=== PATIENT | female | born 1975 | race Two or more races ===

== ENCOUNTER 2020-03-21 13:54 | Outpatient (REF) | payer OTHER, SELFPAY ==
[2020-03-22 10:29] LABS: BV Int Neg Control Negative (Negative); BV Int Pos Control Positive (Positive)
[2020-03-23 19:17] LABS: HPV mRNA E6/E7 rflx Not Detected (Not Detected)
== END 2020-03-21 13:55 | disposition home or self-care (01) ==
LOC: HO.LAB 13:54
PROVIDERS: PCP Internal Medicine; Visit Provider Advanced Practice Midwife
DX: Z12.4 Encounter for screening for malignant neoplasm of cervix (principal); L73.9 Follicular disorder, unspecified; Z20.2 Contact with and (suspected) exposure to infections with a predominantly sexual mode of transmission
CPT/HCPCS: 36415; 87480; 87491; 87510; 87591; 87624; 87660; 88141; 88142

== ENCOUNTER → 2020-08-08 15:48 | Outpatient (BNVA) | payer OTHER, SELFPAY | PROVIDERS: Visit Provider Obstetrics & Gynecology ==

== ENCOUNTER 2020-08-28 11:06 | Outpatient (REF) | payer OTHER, SELFPAY ==
--- NOTE | ~2020-08-28 | MM_ITS ---
EXAMINATION: MM DIAGNOSTIC DIGITAL BREAST TOMOSYNTHESIS, RIGHT US DIAGNOSTIC ULTRASOUND BREAST, RIGHT CLINICAL INFORMATION: 45-year-old with new palpable fullness upper outer right breast noted by patient. Prior history cyst aspirations at outside hospital. Prior outside mammography currently unavailable. No known family history breast cancer. The lifetime risk of breast cancer based on the Tyrer-Cuzick Model is 7%. COMPARISON: None. Radiology department staff will attempt to retrieve outside mammography to allow for comparison in an addendum report. TECHNIQUE: Digital breast tomosynthesis is performed in both the craniocaudal and mediolateral oblique views along with computer-aided detection (CAD). Synthesized 2D images are generated from the tomosynthesis. Ultrasound right breast is targeted to the area of clinical concern outer quadrants. Grayscale imaging and color Doppler are performed without and with harmonics. FINDINGS: The breasts are heterogeneously dense, which may obscure small masses (ACR BI-RADS breast composition Category c). There is fibronodular parenchymal pattern. There are 2 smooth nodules with partly obscured margins anterior upper outer quadrant near the area of palpable concern, both measuring under 1 cm. There is no architectural abnormality or abnormal calcifications. The axilla and skin contours are unremarkable. Ultrasound demonstrates numerous small simple cysts of variable size, the largest 9:00 position near area of palpable concern, bilobed shape, measuring 1.2 x 0.8 cm. The next largest cyst 10:00 position near area of palpable concern measures 1.0 cm. The cysts are anechoic, circumscribed, and with increased through-transmission of sound. No solid component or color flow. There is no solid mass or architectural abnormality. Results are discussed with the patient at time of visit. MM/MM tomosynthesis diagnostic RT IMPRESSION: 1. No mammographic evidence of malignancy. 2. Multiple small simple cysts outer right breast in area of palpable concern, largest 1.2 x 0.8 cm. ASSESSMENT: BI-RADS 2: Benign RECOMMENDATION: 1. Routine annual mammography screening. 2. Radiology department staff will attempt to retrieve outside mammography to allow for comparison in an addendum report. This patient's information was entered into a reminder system with a target due date for their next mammogram.
== END 2020-08-28 11:07 | disposition home or self-care (01) ==
LOC: HO.MAMMO 11:06
PROVIDERS: Visit Provider Obstetrics & Gynecology
DX: N63.11 Unspecified lump in the right breast, upper outer quadrant (principal)
CPT/HCPCS: 76642; 77061; 77065

== ENCOUNTER → 2020-09-04 14:19 | Outpatient (BNVA) | payer OTHER, SELFPAY | PROVIDERS: PCP Internal Medicine; Referring Provider Obstetrics & Gynecology; Visit Provider Surgery ==

== ENCOUNTER 2020-09-20 14:27 | Outpatient (REF) | payer OTHER, SELFPAY ==
[2020-09-21 04:49] LABS: CT PCR NOT DETECTED (Not Detect.); NG PCR NOT DETECTED (Not Detect.)
== END 2020-09-20 14:28 | disposition home or self-care (01) ==
LOC: HO.LAB 14:27
PROVIDERS: PCP Internal Medicine; Visit Provider Obstetrics & Gynecology
DX: Z30.432 Encounter for removal of intrauterine contraceptive device (principal); Z30.09 Encounter for other general counseling and advice on contraception; N91.2 Amenorrhea, unspecified
CPT/HCPCS: 58301; 87491; 87591

== ENCOUNTER 2020-09-27 17:26 | Outpatient (REF) | payer OTHER, SELFPAY ==
[2020-09-27 18:47] LABS: HCG Quantitative < 2 mIU/mL; TSH reflex Free T4 1.29 uIU/mL (0.32-4.0)
[2020-09-29 09:11] LABS: Follicle Stimulating Hormone 9.2 mIU/mL; Lutenizing Hormone 4.8 mIU/mL
== END 2020-09-27 17:27 | disposition home or self-care (01) ==
LOC: HO.LAB 17:26
PROVIDERS: Visit Provider Obstetrics & Gynecology
DX: N91.2 Amenorrhea, unspecified (principal)
CPT/HCPCS: 36415; 83001; 83002; 84443; 84702

== ENCOUNTER → 2020-10-11 14:28 | Outpatient (BNVA) | payer OTHER, SELFPAY | PROVIDERS: Visit Provider Obstetrics & Gynecology ==

== ENCOUNTER → 2020-10-17 10:08 | Outpatient (BNVA) | payer OTHER, SELFPAY | PROVIDERS: Visit Provider Obstetrics & Gynecology ==

== ENCOUNTER 2020-10-24 16:52 | Outpatient (REF) | payer OTHER, SELFPAY ==
[2020-10-24 19:56] LABS: HCG Quantitative < 2 mIU/mL
[2020-10-25 16:46] LABS: Prolactin 13.2 ng/mL
== END 2020-10-24 16:53 | disposition home or self-care (01) ==
LOC: HO.LAB 16:52
PROVIDERS: PCP Internal Medicine; Visit Provider Obstetrics & Gynecology
DX: N91.2 Amenorrhea, unspecified (principal)
CPT/HCPCS: 36415; 84146; 84702

== ENCOUNTER → 2020-10-25 13:33 | Outpatient (BNVA) | payer OTHER, SELFPAY | PROVIDERS: Visit Provider Obstetrics & Gynecology ==

== ENCOUNTER → 2020-10-29 15:18 | Outpatient (BNVA) | payer OTHER, SELFPAY | PROVIDERS: Visit Provider Obstetrics & Gynecology ==

== ENCOUNTER → 2020-12-31 12:25 | Outpatient (BNVA) | payer OTHER, SELFPAY | PROVIDERS: Visit Provider Obstetrics & Gynecology ==

== ENCOUNTER 2022-04-07 08:43 | Outpatient (REF) | payer OTHER, SELFPAY ==
[2022-04-08 05:46] LABS: CT PCR NOT DETECTED (Not Detect.); NG PCR NOT DETECTED (Not Detect.)
[2022-04-08 13:01] LABS: BV Int Neg Control Negative (Negative); BV Int Pos Control Positive (Positive)
== END 2022-04-07 08:44 | disposition home or self-care (01) ==
LOC: HO.LNP 08:43
PROVIDERS: PCP Physician Assistant; Visit Provider Obstetrics & Gynecology
DX: N76.0 Acute vaginitis (principal); B96.89 Other specified bacterial agents as the cause of diseases classified elsewhere; R31.29 Other microscopic hematuria
CPT/HCPCS: 0353U; 87086; 87088; 87186; 87480; 87510; 87660

== ENCOUNTER 2022-04-15 17:13 | Outpatient (REF) | payer OTHER, SELFPAY ==
[2022-04-16 08:03] LABS: HIV AB/AG Nonreactive (Nonreactive); HIV Num 1 0.08 S/CO (0.00-0.99); Hepatitis B Surface Antigen Negative (Negative); ~Hepatitis C Antibody Nonreactive (Nonreactive)
[2022-04-16 08:04] LABS: Syphilis Screen Nonreactive (Nonreactive)
== END 2022-04-15 17:14 | disposition home or self-care (01) ==
LOC: HO.LAB 17:13
PROVIDERS: Visit Provider Obstetrics & Gynecology
DX: N76.0 Acute vaginitis (principal); B96.89 Other specified bacterial agents as the cause of diseases classified elsewhere
CPT/HCPCS: 36415; 86780; 86803; 87340; 87389

== ENCOUNTER → 2022-04-21 08:39 | Outpatient (BNVA) | payer OTHER, SELFPAY | PROVIDERS: PCP Physician Assistant; Visit Provider Obstetrics & Gynecology | DX: Z13.89 Encounter for screening for other disorder (principal) ==

== ENCOUNTER 2022-10-01 14:20 | Outpatient (REF) | payer OTHER, SELFPAY | END 2022-10-01 14:21 | disposition home or self-care (01) | LOC: HO.LNP 14:20 | PROVIDERS: PCP Physician Assistant; Visit Provider Advanced Practice Midwife | DX: Z13.89 Encounter for screening for other disorder (principal) ==

== ENCOUNTER 2022-10-01 14:20 | Outpatient (AMB) | payer OTHER, SELFPAY ==
--- NOTE | 2022-10-01 14:22 | MHC.OFFVIS ---
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 Scribed for AJ Brooks by Albania Juarez medical service representative, on 10/01/2022 at 2:40 pm EST. Customer Consulting Manager: Customer Consulting Manager Present (Jayna) Allergies Sulfa (Sulfonamide Antibiotics) Allergy (Unknown, Verified 10/01/22 14:23) rash sulfamethoxazole [From Bactrim] Allergy (Unknown, Verified 10/01/22 14:23) Unknown trimethoprim [From Bactrim] Allergy (Unknown, Verified 10/01/22 14:23) Unknown Is last menstrual period known: Yes Last menstrual period: 09/27/22 HPI HPI Comments History of Present Illness Details She is a premenopausal woman presenting for annual exam. Doing well with no forensic ballistics expert concerns. She admits to eating healthy and tries to stay active with exercise. Currently sexually active. Uses ParaGuard for BC, switched from Mirena due to cysts in breast. Cycles are regular x 4-5d. Denies vaginal itching and irritation. STD screening offered; she accepts. Denies family hx of breast, colon and ovarian cancer. Last pap smear 03/21/20. Last mammogram 08/28/20. Reports she is a stress smoker, 1-2cigs/d. Not able to quit at this time. 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 [employer] Sexual orientation: Straight/Heterosexual Gender identity: Female Female Reproductive History Menstrual Age of Menarche: 12 Date of last menstrual period: 09/27/22 control method: copper IUCD (Paragard 10/27, IUD strings visible 10/01/22) Total pregnancies: 2 Full term: 2 Number of Living Children: 2 Date of last pap smear: 03/21/20 (ascus neg hpv) Date of Mammogram: 08/28/20 Physical Exam Vital Signs: Last Vital Signs BP 100/60 10/01/22 14:23 BMI result Body Mass Index 23.8 Const General: cooperative, healthy appearing, no acute distress, well developed and alert Orientation/consciousness: patient oriented x3 HEENT Head: Yes normal to inspection Eyes General: appearance normal, both eyes and all related structures Neck Neck: Yes normal visual inspection Thyroid: Thyroid normal Chest Chest palpation & inspection: normal inspection of the chest Breast/axilla inspection: normal inspection of the breasts (no puckering, dimpling, peau de orange, retraction, discharge, masses) Breast/axilla palpation: normal palpation of the breasts Resp Effort & Inspection: normal respiratory effort GI Inspection: Yes normal to inspection Palpation (GI): Soft to palpation (to palpation) Rectal Exam - Female: deferred General: Yes bladder normal to inspection External Female Exam: normal external appearance and normal appearance of the urethra Speculum Exam - Vagina: normal appearance of the vagina, normal palpation and other (brown bloody discharge ) Speculum Exam - Cervix: normal appearance of the cervix, normal palpation and Other cervical findings present (IUD strings visible) Bimanual exam- vagina & uterus: normal palpation and normal palpation Bimanual Exam- Adnexa, other: normal adnexae and no masses Skin General skin exam: no rashes or lesions noted Neuro General: patient oriented x3 Cognition (Neuro): normal cognition Extrem General: Yes normal to inspection Psych Attitude: cooperative Thought process: Normal thought process present Assessment & Plan Assessment & Plan (1) Encounter for well woman exam: Code(s): Z01.419 - Encounter for gynecological examination (general) (routine) without abnormal findings Plan: Discussed: Current recommendations for pap smears per ASCCP guidelines. Pap due next year. Breast awareness and periodic self breast exams. Maintaining a healthy lifestyle including a well balanced diet and routine exercise. BV testing and GC/CT panel done today. Await results and treat accordingly. Encouraged patient to sign up for patient portal. Encourage to lower tobacco intake then quit. All of her questions and concerns were addressed to the best of my ability. RTO in one year for AG. (2) Potential exposure to STD: Code(s): Z20.2 - Contact with and (suspected) exposure to infections with a predominantly sexual mode of transmission Orders: Orders Bacterial Vaginosis Panel Today Z20.2 - Contact with and (suspected) exposure to infections with a predominantly sexual mode of transmission CT NG by PCR Today Z20.2 - Contact with and (suspected) exposure to infections with a predominantly sexual mode of transmission Coding Level of Care Code Est Pt Prev Care 40-64y(49096) Diagnoses Encounter for well woman exam Z01.419 Potential exposure to STD Z20.2
[2022-10-01 14:23] VITALS: BP 100/60; BMI 23.8
== END 2022-10-01 15:02 | disposition home or self-care (01) ==
LOC: HO.HWS 14:20
PROVIDERS: PCP Physician Assistant; Visit Provider Advanced Practice Midwife
DX: Z01.419 Encounter for gynecological examination (general) (routine) without abnormal findings (principal); Z20.2 Contact with and (suspected) exposure to infections with a predominantly sexual mode of transmission
CPT/HCPCS: 99396

== ENCOUNTER 2022-10-01 14:48 | Outpatient (REF) | payer OTHER, SELFPAY ==
[2022-10-01 19:34] LABS: CT PCR NOT DETECTED (Not Detect.); NG PCR NOT DETECTED (Not Detect.)
[2022-10-02 14:54] LABS: BV Int Neg Control Negative (Negative); BV Int Pos Control Positive (Positive)
== END 2022-10-01 14:49 | disposition home or self-care (01) ==
LOC: HO.LAB 14:48
PROVIDERS: Visit Provider Advanced Practice Midwife
DX: Z20.2 Contact with and (suspected) exposure to infections with a predominantly sexual mode of transmission (principal)
CPT/HCPCS: 0353U; 87480; 87510; 87660

== ENCOUNTER 2023-08-13 11:34 | Outpatient (AMB) | payer OTHER, SELFPAY ==
--- NOTE | 2023-08-13 11:39 | MHC.OFFVIS ---
Intake Visit Reasons: tubal consult/DO NOT RS Allergies Sulfa (Sulfonamide Antibiotics) Allergy (Unknown, Verified 10/01/22 14:23) rash sulfamethoxazole [From Bactrim] Allergy (Unknown, Verified 10/01/22 14:23) Unknown trimethoprim [From Bactrim] Allergy (Unknown, Verified 10/01/22 14:23) Unknown HPI Comments Details: Presenting to to discuss different method of control. 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 [employer] Sexual orientation: Straight/Heterosexual Gender identity: Female Female Reproductive History Menstrual Age of Menarche: 12 Review of Systems Const All systems reviewed & are unremarkable except as noted in HPI and below Reports as per HPI and Reports no additional complaints GI Reports no additional complaints Reports no additional complaints Assessment & Plan Assessment & Plan (1) Family planning: Code(s): Z30.09 - Encounter for other general counseling and advice on contraception Category: Social Hx Plan: Discussed with the patient the different options of control including control pills/Nuvaring, DMPA, different types of IUD ?s, sterilization. All the pros, cons, risks and benefits of each were discussed with the patient. The patient decided to stay with her IUD, all questions answered, the patient verbalized understanding Coding Level of Care Code Est Pt Level 3 (85619) Diagnoses Family planning Z30.09
== END 2023-08-13 15:20 | disposition home or self-care (01) ==
PROVIDERS: PCP Physician Assistant; Visit Provider Obstetrics & Gynecology
DX: Z30.09 Encounter for other general counseling and advice on contraception (principal)
CPT/HCPCS: 99213

== ENCOUNTER → 2023-08-13 11:34 | Outpatient (BNVA) | payer OTHER, SELFPAY | PROVIDERS: PCP Physician Assistant; Visit Provider Obstetrics & Gynecology ==

== ENCOUNTER 2023-10-09 14:35 | Outpatient (AMB) | payer OTHER, SELFPAY ==
--- NOTE | 2023-10-09 14:42 | MHC.OFFVIS ---
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 Doing well with no concerns. She tries to eat healthy and stays active with exercise. Current ParaGard user reports some of her cycles this year or skipping she has an occasional hot flashes. Currently is sexually active. She denies vaginal itching and irritation. STI screening offered; she accepts declines blood work has a done at another organization. Denies family history of breast, ovarian or colon cancer. Last pap smear 2020, negative. Mammogram: at [facility], no records available. Tobacco user starting to think about quitting [facility] Medical History (Updated 10/09/23 @ 14:55 by Mony Gao CNM) ASCUS of cervix with negative high risk HPV Surgical History H/O removal of cyst Family History Mother History of leukemia FH: HTN (hypertension) Father Cirrhosis of liver FH: HTN (hypertension) Social History (Updated 10/09/23 @ 14:48 by ANGELICA Llamas) Alcohol intake: current Alcohol intake frequency: holidays/special occasions only Patient Tobacco Use Status: Current everyday Tobacco user Tobacco use type: Cigarette Cigarettes Per Day: 1 Current occupational status: employed 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 [employer] Sexually active: Yes Sexual orientation: Straight/Heterosexual Gender identity: Female Female Reproductive History Menstrual Age of Menarche: 12 Duration of menses: 3-5 days Date of last menstrual period: 10/06/23 control method: copper IUCD (Paragard 10/2020) Total pregnancies: 2 Full term: 2 Number of Living Children: 2 Date of last pap smear: 04/08/20 (ascus) Date of Mammogram: 08/28/20 (Birad 2) Review of Systems Const All systems reviewed & are unremarkable except as noted in HPI and below Reports as per HPI Eyes Reports no additional complaints ENT Reports no additional complaints Card Reports no additional complaints Resp Reports no additional complaints GI Reports as per HPI and Reports no additional complaints Reports as per HPI Musc Reports no additional complaints Skin/Breast Reports as per HPI Neuro Reports no additional complaints Psych Reports no additional complaints Endo Reports no additional complaints Dalton/Lymph Reports no additional complaints Aller/Immun Reports no additional complaints Physical Exam Vital Signs: Last Vital Signs BP 110/70 10/09/23 14:44 BMI result Body Mass Index 24.0 Const General: cooperative, healthy appearing, no acute distress, well developed and alert Orientation/consciousness: patient oriented x3 HEENT Head: Yes normal to inspection Eyes General: appearance normal, both eyes and all related structures Neck Neck: Yes normal visual inspection Thyroid: Thyroid normal Chest Chest palpation & inspection: normal inspection of the chest and other (no puckering, dimpling, peau de orange, retraction, discharge, masses) Breast/axilla inspection: normal inspection of the breasts Breast/axilla palpation: normal palpation of the breasts Resp Effort & Inspection: normal respiratory effort GI Inspection: Yes normal to inspection Palpation (GI): Soft to palpation Rectal Exam - Female: deferred General: Yes bladder normal to palpation External Female Exam: normal external appearance and normal appearance of the urethra Speculum Exam - Vagina: normal appearance of the vagina, normal palpation and normal vaginal discharge Speculum Exam - Cervix: normal appearance of the cervix, normal palpation and Other cervical findings present (IUD strings long with a knotted loop at the end trimmed today) Bimanual exam- vagina & uterus: normal bimanual exam, normal palpation, uterine size normal, bladder normal to palpation, normal palpation and non-tender Bimanual Exam- Adnexa, other: no masses Skin General skin exam: no rashes or lesions noted Rashes: no rashes Neuro General: patient oriented x3 Cognition (Neuro): normal cognition Extrem General: Yes normal to inspection Psych Attitude: cooperative Thought process: Normal thought process present Assessment & Plan Assessment & Plan (1) Well woman exam with routine gynecological exam: Code(s): Z01.419 - Encounter for gynecological examination (general) (routine) without abnormal findings Category: Medical (2) History of abnormal cervical Pap smear: Code(s): Z87.42 - Personal history of other diseases of the female genital tract Plan Discussed: Current recommendations for pap smears per ASCCP guidelines. Pap repeated. Breast awareness and periodic breast exams. Maintain a healthy lifestyle including a well balanced diet and routine exercise. Mammogram yearly. Send copies from [facility]. Patient verbalizes understanding and agrees to the plan of care. She was given opportunity to ask questions and all questions were answered to the best of my ability. 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 This note is constructed using voice recognition software. While every effort has been made to ensure accuracy, backrest assembler errors may have been included. Coding Level of Care Code Est Pt Prev Care 40-64y(73962) Diagnoses Well woman exam with routine gynecological exam Z01.419 History of abnormal cervical Pap smear Z87.42
[2023-10-09 14:44] VITALS: BP 110/70; BMI 24.0
== END 2023-10-09 15:16 | disposition home or self-care (01) ==
PROVIDERS: PCP Physician Assistant; Visit Provider Advanced Practice Midwife
DX: Z01.419 Encounter for gynecological examination (general) (routine) without abnormal findings (principal); Z87.42 Personal history of other diseases of the female genital tract
CPT/HCPCS: 99396

== ENCOUNTER 2023-10-09 14:35 | Outpatient (REF) | payer OTHER, SELFPAY | END 2023-10-09 14:36 | disposition home or self-care (01) | LOC: HO.LNP 14:35 | PROVIDERS: PCP Physician Assistant; Visit Provider Advanced Practice Midwife | DX: Z13.89 Encounter for screening for other disorder (principal) ==

== ENCOUNTER 2023-10-09 15:12 | Outpatient (REF) | payer OTHER, SELFPAY ==
[2023-10-09 18:17] LABS: Bacterial Vaginosis PCR NEGATIVE (Negative); Candida Group PCR NOT DETECTED (Not Detect); Candida glab krusei PCR NOT DETECTED (Not Detect); Trichomonas vaginalis PCR NOT DETECTED (Not Detect)
[2023-10-09 18:49] LABS: CT PCR NOT DETECTED (Not Detect.); NG PCR NOT DETECTED (Not Detect.)
[2023-10-13 19:44] LABS: HPV mRNA E6/E7 Not Detected (Not Detected)
== END 2023-10-09 15:13 | disposition home or self-care (01) ==
LOC: HO.LAB 15:12
PROVIDERS: Visit Provider Advanced Practice Midwife
DX: Z01.419 Encounter for gynecological examination (general) (routine) without abnormal findings (principal); Z20.2 Contact with and (suspected) exposure to infections with a predominantly sexual mode of transmission
CPT/HCPCS: 0352U; 36415; 87491; 87591; 87624; 88175